=== PATIENT | female | born 1935 | race Caucasian/White ===

== ENCOUNTER 2017-02-18 13:38 | Observation (INO) | payer MEDICARE, OTHER ==
--- NOTE | 2017-02-18 13:58 | ED.PDOC ---
History of Present Illness - General Chief Complaint: General Stated Complaint: dizziness, sweating Time Seen by Provider: 02/18/17 13:51 Source: patient, family Exam Limitations: no limitations - History of Present Illness Initial Comments: PT WAS WORKING OUTSIDE IN HER YARD TODAY. WHEN SHE WENT BACK INTO THE HOUSE SHE DEVELOPED DIZZINESS AND BECAME DIAPHORETIC. CALLED FAMILY MEMBER WHO WENT TO THE HOUSE AND STATES "SHE LOOKED BAD" SO SHE TRANSPORTED HER TO THE ED FOR EVAL. Timing/Duration: other - ONSET TODAY Improving Factors: other - SPONTANEOUS, SHE FEELS BETTER CURRENTLY Worsening Factors: nothing Associated Symptoms: other - PT WAS TX'D BY HER PCP FOR A "CHEST INFX" WITH CEFNDINIR AND AZYTHROMYCIN. FINISHED THE ZITHROMAX BUT STILL TAKING THE CEFNDINIR. Allergies/Adverse Reactions: Allergies Ciprofloxacin [From Cipro] Allergy (Verified 02/18/17 13:49) Sulfamethoxazole w/Trimethoprim [From Bactrim] Allergy (Verified 02/18/17 13:49) Home Medications: Ambulatory Orders Cefdinir 300 mg PO BID 02/18/17 Review of Systems - Review of Systems Constitutional: States: diaphoresis, weakness. Denies: chills, fever EENTM: Denies: blurred vision, ear pain, throat pain, throat swelling Respiratory: Denies: cough, short of breath, wheezing Cardiology: Denies: chest pain, palpitations Gastrointestinal/Abdominal: States: diarrhea - WATERY, NO BLOOD, nausea. Denies : abdominal pain, vomiting Genitourinary: States: dysuria, hematuria Musculoskeletal: Denies: back pain, neck pain Skin: States: no symptoms reported Neurological: States: no symptoms reported Endocrine: States: no symptoms reported Past Medical History (General) - Patient Medical History Hx Hypertension: Yes Family Medical History - Family History Mother Living Status: Hx Cardiac Disease: Yes Physical Exam - Physical Exam General Appearance: Alert, Comfortable, No apparent distress Eye Exam: bilateral normal Ears, Nose, Throat: normal ENT inspection, normal pharynx Neck: full range of motion, supple, normal inspection Respiratory: lungs clear, normal breath sounds, other - O2 SAT 98% RA (NL) Cardiovascular/Chest: regular rate, rhythm, no murmur Gastrointestinal/Abdominal: non tender, soft, no organomegaly Back Exam: normal inspection, no CVA tenderness, no vertebral tenderness Extremity: normal range of motion, normal inspection Neurologic: no motor/sensory deficits, alert, normal mood/affect, oriented x 3 Skin Exam: normal color, warm/dry Lymphatic: no adenopathy Progress - Progress Progress: 02/18/17 15:11 FEELS BETTER NO FURTHER C/O'S HOWEVER, HAS A SMALL BUMP IN HER TROP AND MB. 02/18/17 15:55 D/W ATIF, HE WILL CALL DR MONTEJO AND CALL BACK - EKG/XRAY/CT EKG: Sinus - RATE 82 LAD, 1ST DEGREE AV BLOCK, NON SPECIFIC T WAVE ABNORMALITY, LBBB. NO CHANGE FROM 12/14/14 Departure - Departure Clinical Impression: Vertigo, Elevation of cardiac enzymes, Chronic hypertension Time of Disposition: 15:55 - ATIF CALL BACK WILL ADMIT HERE. Disposition: Admit Patient Condition: Good Departure Forms: ED Discharge - Pt. Copy, Patient Portal Self Enrollment Home Medications: Ambulatory Orders Cefdinir 300 mg PO BID 02/18/17
[2017-02-18] MEDS ORDERED: SODIUM CHLORIDE 0.9% 1000ML 500 ML IVS ONE (14:11)
--- NOTE | 2017-02-18 14:37 | RAD ---
EXAM DESCRIPTION: Chest,2 Views CLINICAL HISTORY: 81 years,Female,cough COMPARISON: None FINDINGS: There are no consolidations. No effusions. No pneumothoraces. No nodules. Bony elements unremarkable for age. Surgical clips right upper quadrant most likely from past cholecystectomy. IMPRESSION: Unremarkable chest for age Electronically signed by: Emiliano Mar MD 02/18/2017 2:36 PM CDT
--- NOTE | 2017-02-18 16:09 | HP ---
SUPERVISING PHYSICIAN: Chris Perla M.D. CHIEF COMPLAINT: Dizziness with some sweating. HISTORY OF PRESENT ILLNESS: Ms. Cisneros is an 81 year-old female patient who was brought to the Emergency Department by a friend. The patient notes that she had been working outside in her yard attempting to put out Easter decorations, when she walked back in the house and suddenly developed dizziness at which time she became diaphoretic and had some nausea without any emesis. She then called a family member who went to the house and noted the patient looked bad. At that point, she was transported to the Emergency Department. Symptoms had spontaneously improved by admission and she was pain free upon admission without any symptoms at the Emergency Department. She does have a significant history of being recently treated for upper respiratory infection on 02/13/17 having been treated with Azithromycin which is completed as well as Cefdinir which is still in process. Initial vital signs in the Emergency Department showed her to be afebrile with temperature 97.8, pulse 75, blood pressure 157/77, respirations 22. She was satting 90% on room air. Her initial laboratory studies for troponin showed that her troponin was slightly elevated at 0.07 as well as CK-MB was 4.6. Potassium was low at 3.1 but magnesium was normal at 2.1. EKG was completed showing that there was a heart rate of 82 with a first degree AV block with a left bundle branch block but no change compared to previous EKG on 12/14/14. Given that she had acute symptoms and now has a slight increase in her troponin, and is now pain free without any symptoms, the patient is going to be placed in Observation tonight to further rule out any acute coronary syndrome or other coronary events. The patient will be placed on telemetry with repeat serial cardiac enzymes. She was placed in Observation in stable condition. PAST MEDICAL HISTORY: 1. Gastroesophageal reflux disease. 2. Hyperlipidemia. 3. Hypertension. 4. Osteoporosis. PAST SURGICAL HISTORY: 1. Colonoscopy in 2003. 2. Esophagogastroduodenoscopy in 2004. 3. Cholecystectomy in 1971. 4. Hysterectomy in 1978. HOME MEDICATIONS: 1. Aspirin 81 mg daily. 2. Potassium 20 mEq daily. 3. Protonix 40 mg daily. 4. Folic acid 1 mg daily. 5. Diflunisal 500 mg daily. 6. Norvasc 10 mg daily. 7. Simvastatin 40 mg daily. 8. Hydrochlorothiazide 25 mg daily. 9. Continued antibiotic of Cefdinir 300 mg twice daily for a total of 10 days. ALLERGIES: CIPROFLOXACIN AND BACTRIM. FAMILY HISTORY: Father at age 57 secondary to a myocardial infarction. Mother at age 90 due to congestive heart failure and complications from previous heart surgery. SOCIAL HISTORY: The patient is retired. She previously worked at the [email or web address] in [place]. She does live in [place]. She is . She never smoked. She denies ever drinking. REVIEW OF SYSTEMS: CONSTITUTIONAL: The patient does have, as noted in the History of Present Illness, diaphoresis and weakness prior to admission but denies any chills, fevers or fatigue. HEENT: She denies any change in vision, ear pain, sore throat. RESPIRATORY: Denies any shortness of breath, coughing or wheezing, but has been recently treated for upper respiratory infection. CARDIOVASCULAR: As noted in the history of present illness, chest pains and palpitations with some dizziness, but no true syncopal episodes. Chest pain resolved prior to admission to the Emergency Department. GASTROINTESTINAL: Note that she has had some diarrhea that is watery but without any gross blood. She has had some nausea but denies any vomiting or abdominal pains. GENITOURINARY: Denies any dysuria, hematuria or other urinary symptoms. NEUROLOGIC: No syncopal episodes, changes in vision or headaches. PHYSICAL EXAMINATION: VITAL SIGNS: Temperature 97.8, pulse 75, blood pressure 157/77, respirations 22 , O2 sat 98% on room air. GENERAL: The patient on the Medical/Surgical floor appears to be in no acute distress. She is without any pains. She is alert and oriented, and visiting with family. HEENT: Tympanic membranes bilaterally are clear. Oropharynx is pink and moist without any lesions. NECK: No jugular venous distention. Neck is supple with full range of motion. CHEST: Lungs are clear to auscultation bilaterally without any rhonchi, wheezing or rales. CARDIOVASCULAR: Regular rate and rhythm without appreciable murmurs, gallops, or rubs. ABDOMEN: Soft, non-tender. Positive bowel sounds. EXTREMITIES: No clubbing, cyanosis or edema. NEUROLOGIC: She is alert and oriented times three with no motor or sensory deficits noted. LABORATORY: CBC showed a white count of 6.4, hemoglobin 13.0, hematocrit 39.8, platelet count 249,000. Differential showed a slight left shift, but she is currently being treated for an upper respiratory infection. RBC indices showed a microcytic hypochromic presentation. Coagulation studies showed a normal PT and PTT. Chemistries showed a normal sodium but low potassium at 3.1, BUN 26, creatinine 1.2, glucose 182. Magnesium 2.1. Liver functions showed to be within normal limits. Initial cardiac enzymes showed an elevated creatinine kinase at 198 with CPK of 4.6, troponin was slightly elevated at 0.07. BNP was elevated at 187. Urinalysis is pending. Initial EKG in the Emergency Department showed a first degree AV block with a left bundle branch block with no significant change as compared to old EKG on . RADIOLOGY: Chest x-ray per radiology interpretation prior to admission in the Emergency Department showed unremarkable chest for age. There was no consolidation, no effusions, no pneumothoraces. ASSESSMENT: 1. Acute near syncopal episode with some vertigo and some nausea with elevation of cardiac enzymes. 2. Elevated cardiac enzymes with the patient having no significant chest pain , unknown etiology at this point. Need further evaluation for rule out of acute cardiac event. 3. History of recent upper respiratory infection having been treated with multiple antibiotics to include Azithromycin and Omnicef under current treatment. 4. Diarrhea possibly secondary to recent antibiotic therapy possibly contributing to her vertigo and symptomology as noted in number 1. 5. Mild dehydration secondary to some diarrhea possibly contributing to some vertigo and symptoms. 6. History of esophageal reflux disease. 7. History of osteoporosis. PLAN: The patient will be placed in Observation tonight to do further cardiac studies to include serial cardiac enzymes to help rule out any other underlying coronary event. On admission, the patient was without any chest pains, but again her troponin was elevated, therefore will continue to monitor the patient on telemetry. Will monitor her labs closely. She will be started on DVT prophylaxis as per protocol. Will resume her home medications once they have been updated and verified in the electronic medical records. Should she show any elevation in troponin significant again and comparison to EKGs, certainly we will contact Cardiology tonight or in the morning. If the patient does have return of symptoms such as chest pains, at that point will need to call Cardiology. If the patient is without significant change, anticipate the patient can be discharged tomorrow with length of stay possibly 1 to 2 days. Once the patient is discharged, she will need close clinical followup with her primary care provider, Dr. Garces, as well as a followup with Cardiology with a possible stress test. She does have a stress test scheduled in July of this year. Until discharge, will continue to monitor the patient closely and treat appropriately. #[id number] MTDD
[2017-02-18] MEDS ORDERED: ASPIRIN (CHEWABLE) 81 MG TAB PO ONE (16:26)
[2017-02-18] MEDS ORDERED: SODIUM CHLORIDE 0.9% (FLUSH) 10 ML SYG IV PRN (16:26)
[2017-02-18] MEDS ORDERED: NITROGLYCERIN 0.4 MG 25 EA TAB SL PRN (16:26)
[2017-02-18] MEDS ORDERED: MORPHINE SULFATE INJ 10 MG/ML VIAL IV PRN (16:26)
[2017-02-18] MEDS ORDERED: ACETAMINOPHEN 325 MG TAB PO PRN (16:26)
[2017-02-18] MEDS ORDERED: IV SET AND CAP CHANGE INJ INJ SCH (16:30)
[2017-02-18] MEDS ORDERED: KCL 20 MEQ/NS 1,000 ML IVS PRN (17:25)
--- NOTE | 2017-02-18 17:29 | PCM.CORE ---
Physician DVT/VTE - Nurse DVT Assessment & Total Each Risk Factor Represents 3 Points: Age over 75 years, Medical PT with Hx of [place], CHF, Severe infection/sepsis Each Risk Factor is 1 Point: Obesity (BMI >25) DVT Assessment Score: 7 - 5 or more Very High Risk Treatments: Early Ambulation *, Sequential Compression Device Pharmacological: Enoxaparin 40mg SQ Daily
[2017-02-18] MEDS ORDERED: ENOXAPARIN SODIUM 40 MG/0.4 ML SYG SUBCU SCH (17:30)
[2017-02-18] MEDS: CEFDINIR 300 MG PO SCH ×2 (18:51→20:41)
[2017-02-18] MEDS: SODIUM CHLORIDE 0.9% (FLUSH) 10 ML SYG IV SCH (20:41)
[2017-02-18 21:58] VITALS: O2SAT 97
[2017-02-19] MEDS ORDERED: SIMVASTATIN 20 MG TAB ONE (07:01)
[2017-02-19] MEDS: CEFDINIR 300 MG PO SCH (08:21)
[2017-02-19] MEDS: SODIUM CHLORIDE 0.9% (FLUSH) 10 ML SYG IV SCH (08:23)
[2017-02-19] MEDS ORDERED: hydroCHLOROthiazide 25 MG TAB PO SCH (09:00)
[2017-02-19] MEDS ORDERED: FOLIC ACID 1 MG TAB PO SCH (09:00)
[2017-02-19] MEDS ORDERED: PANTOPRAZOLE SODIUM TAB 40 MG PO SCH (09:00)
[2017-02-19] MEDS ORDERED: POTASSIUM CHLORIDE 20 MEQ TAB PO SCH (09:00)
[2017-02-19] MEDS ORDERED: amLODIPine BESYLATE 5 MG TAB PO SCH (09:00)
[2017-02-19] MEDS ORDERED: ASPIRIN TABLET 325 MG TAB PO SCH (09:00)
[2017-02-19] MEDS ORDERED: SIMVASTATIN 20 MG TAB PO SCH ×2 (09:00→21:00)
[2017-02-19] MEDS ORDERED: ASPIRIN EC 81 MG TAB PO SCH (09:00)
[2017-02-19] MEDS ORDERED: DIFLUNISAL 500 MG PO SCH (09:00)
[2017-02-19] MEDS ORDERED: NON-FORMULARY MEDICATION 1 EA MIS (Simvastatin [Simvastatin] 40 MG) PO SCH (09:00)
[2017-02-19 10:28] VITALS: BP 134/80; TEMP 97.3
[2017-02-19] MEDS ORDERED: POTASSIUM CHLORIDE 20 MEQ TAB PO ONE (12:27)
[2017-02-19] MEDS ORDERED: ENOXAPARIN SODIUM 40 MG/0.4 ML SYG SUBCU SCH (21:00)
--- NOTE | 2017-02-19 21:42 | DS ---
SUPERVISING PHYSICIAN: Esvin Victor M.D. DISCHARGE DIAGNOSIS: 1. Acute near syncopal episode with some vertigo and nausea, and an elevation of her cardiac enzymes. 2. Elevated cardiac enzymes with serial troponins at 0.07 with no significant chest pain and unknown etiology at this point. Her safe deposit clerk is Dr. Christiano Gutiérrez in [place]. 3. History of recent upper respiratory infection having been treated with multiple antibiotics, including Azithromycin and currently on Omnicef as her current treatment. 4. Diarrhea possibly secondary to recent multiple antibiotic therapies that may have contributed to vertigo and symptomology as noted in number 1. 5. Mild dehydration secondary to nausea and vomiting and diarrhea that is now resolved. 6. History of gastroesophageal reflux disease. 7. History of osteoporosis. HISTORY OF PRESENT ILLNESS: This is an 81 year-old female who was brought to the Emergency Room on the date of admission with complaints of dizziness and some sweating. She had been working outside in her yard. She went back inside and suddenly developed some dizziness. She also became very diaphoretic and had some nausea with no emesis at that point. She was brought to the Emergency Room and she was pain free at that point. She had recently been treated in her primary care physician's office, Dr. Garces, for an upper respiratory infection. She initially got Azithromycin and was changed to Cefdinir that was her current treatment. Her initial vital signs in the Emergency Room showed a temperature of 97.8, pulse 75, blood pressure 157/77, respiratory rate 22. She was 90% on room air. Initial troponin was 0.07 as well as a CK-MB of 4.6. Potassium was slightly low at 3.1 and her magnesium was normal at 2.1. EKG was completed with a heart rate of 82 and showed a first degree AV block. There were no changes compared to her previous EKG on 12/14/14. She was placed in Observation in the hospital and monitored closely. HOSPITAL COURSE: The patient had no complaints of chest pain during her entire stay. Her serial EKGs were unchanged and her 3 troponins were 0.07. Potassium was slightly low again this morning and she received some oral potassium. She has had no complaints of dizziness, nausea, vomiting or diarrhea since she was put in the hospital. I spoke with Dr. Gutiérrez about her case to see if she needed to see him at any point. After discussing her symptoms as well as her labs and her testing, he felt strongly that there was no cardiac involvement given her testing and results. He felt she may have a chronic, slightly elevated troponin and recommended that her troponin be checked on an outpatient basis when she has her followup with Dr. Garces. He also said that if she had any further complaints that she could contact his office and she is scheduled for a stress test in July. DISCHARGE PLAN: The patient will be discharged home in stable condition. She is to resume her previous activities as well as continue and complete her Cefdinir antibiotics. She has a followup with Dr. Garces on 02/26/17 at 10:15 because she had a slightly low potassium and Dr. Gutiérrez would like to check her troponin as an outpatient. It is recommended that she get 1 set of cardiac enzymes as well as a metabolic panel at her followup appointment. She will be discharged home with her home medications. She is to followup with Dr. Garces's office or return to the hospital if she has any further problems or complications. DISCHARGE MEDICATIONS: 1. Cefdinir. 2. Potassium chloride. 3. Protonix. 4. Folic acid. 5. Diflunisal. 6. Amlodipine. 7. Simvastatin. 8. Hydrochlorothiazide. 9. Aspirin. Dr. Victor is the collaborating physician and available for consultation. #[id number] [facility]
[2017-02-20] MEDS ORDERED: PANTOPRAZOLE SODIUM TAB 40 MG PO SCH (06:30)
[2017-02-20] MEDS ORDERED: POTASSIUM CHLORIDE 20 MEQ TAB PO SCH (07:30)
== END 2017-02-19 13:50 | disposition home or self-care (01) ==
LOC: ER 13:38 → MS 16:08
PROVIDERS: ADMIT Nurse Practitioner Family; ATTEND Nurse Practitioner Acute Care
DX: R55 Syncope and collapse (principal); R42 Dizziness and giddiness; R11.2 Nausea with vomiting, unspecified; J06.9 Acute upper respiratory infection, unspecified; R19.7 Diarrhea, unspecified; E86.0 Dehydration; E87.6 Hypokalemia; I10 Essential (primary) hypertension; K21.9 Gastro-esophageal reflux disease without esophagitis; M81.0 Age-related osteoporosis without current pathological fracture; I44.0 Atrioventricular block, first degree; I44.7 Left bundle-branch block, unspecified; E78.5 Hyperlipidemia, unspecified; Z79.82 Long term (current) use of aspirin; Z79.899 Other long term (current) drug therapy; Z88.1 Allergy status to other antibiotic agents; Z88.3 Allergy status to other anti-infective agents; Z90.49 Acquired absence of other specified parts of digestive tract; Z82.49 Family history of ischemic heart disease and other diseases of the circulatory system
CPT/HCPCS: 36415 ×4; 71020; 80048 ×2; 80061; 80076; 82550 ×3; 82553 ×3; 83880; 84484 ×3; 85025 ×2; 85610; 85730; 93005 ×3; 94760 ×2; 96372; 99284; G0378; J1650; J7030

== ENCOUNTER → 2017-02-26 | Outpatient (CLI) | payer MEDICARE, OTHER | LOC: GMAB 14:24 | PROVIDERS: ATTEND Family Medicine | DX: R74.8 Abnormal levels of other serum enzymes (principal); R55 Syncope and collapse ==

== ENCOUNTER → 2017-10-21 | Outpatient (CLI) | payer MEDICARE, OTHER | END | disposition home or self-care (01) | LOC: GMAB 10:38 | PROVIDERS: ATTEND Family Medicine | DX: I10 Essential (primary) hypertension (principal) ==

== ENCOUNTER → 2018-01-23 | Outpatient (CLI) | payer MEDICARE, OTHER | LOC: GMAB 10:56 | PROVIDERS: ATTEND Family Medicine | DX: M06.9 Rheumatoid arthritis, unspecified (principal) ==

== ENCOUNTER → 2018-09-08 | Outpatient (CLI) | payer MEDICARE, OTHER | LOC: GMAE 14:38 | PROVIDERS: ATTEND Family Medicine | DX: M06.9 Rheumatoid arthritis, unspecified (principal) ==

== ENCOUNTER → 2018-10-01 | Outpatient (CLI) | payer MEDICARE, OTHER ==
--- NOTE | 2018-10-02 07:41 | RAD ---
EXAM: Pelvis and hip CLINICAL HISTORY: Pain COMPARISON STUDY: None TECHNICAL: AP pelvis FINDINGS: The pelvic ring is intact and negative. Both hips are in anatomic alignment. There is no identifiable fracture. There is no osseous abnormality. There are no significant degenerative changes IMPRESSION: Negative pelvis. Electronically signed by: Germán Quiroz MD 10/02/2018 7:40 AM [facility]
--- NOTE | 2018-10-02 07:41 | RAD ---
EXAM: Knee,Right Complete CLINICAL HISTORY: PAIN IN RIGHT KNEE COMPARISON STUDY: June 22, 2015 TECHNICAL: 4 views of the right knee to include standing AP FINDINGS: Joint space loss of the medial compartment has worsened since 2015. There is more subchondral sclerosis. The osteophytes along the joint line are similar. There are mild degenerative changes of the lateral compartment and moderate changes of the patellofemoral joint. There is no fracture or dislocation. IMPRESSION: Moderate to severe degenerative changes of the medial compartment. Moderate degenerative changes of the patellofemoral joint and mild changes at the lateral compartment. Electronically signed by: Germán Quiroz MD 10/02/2018 7:39 AM [facility] [email or web address]]
== END ==
LOC: RAD 09-30 19:43
PROVIDERS: ATTEND Orthopaedic Surgery
DX: M25.551 Pain in right hip (principal); M25.561 Pain in right knee; M12.861 Other specific arthropathies, not elsewhere classified, right knee

== ENCOUNTER → 2018-12-08 | Outpatient (CLI) | payer MEDICARE, OTHER | LOC: GMAE 10:24 | PROVIDERS: ATTEND Family Medicine | DX: I10 Essential (primary) hypertension (principal) ==

== ENCOUNTER → 2019-01-12 | Outpatient (CLI) | payer MEDICARE, OTHER ==
--- NOTE | 2019-01-13 12:59 | MAM ---
EXAM DESCRIPTION: 3D Screening BILATERAL : Digital Mammography. CLINICAL HISTORY: 83 years Female ANNUAL SCREENING . No complaints. No personal family history of breast cancer. Childbirth. Postmenopausal 42 years. HRT 5 or more years ago.. Lifetime risk of developing breast cancer (Tyrer-Cuzick model)(%): 1.7. COMPARISON: 2-D digital screening bilateral mammography 11/05/2016 TECHNIQUE: Bilateral CC and MLO projection full-field images, digital tomosynthesis mammographic technique. Bilateral digital 2-D full-field MLO images. CAD not available for tomosynthesis or 2-D images. FINDINGS: The breast parenchymal density pattern is: Almost entirely fatty. No skin thickening or nipple retraction. Bilateral vascular calcifications. Bilateral well-circumscribed nodular densities are stable. Scattered solitary microcalcifications bilaterally. No new focal, stellate mass or density, focal asymmetry , and no suspicious microcalcifications bilaterally. Stable mammograms compared to prior study. Taking into account, differences in mammographic technique. IMPRESSION: Benign exam. BIRAD CATEGORY: 2 BENIGN FINDINGS. RECOMMENDATIONS: FOLLOW UP: Routine digital bilateral mammographic screening, one year interval from December 2018. Written communication explaining the IMPRESSION and follow-up, will be mailed to the patient and referring health care provider. According to the [employer], yearly mammograms are recommended starting at age 40 and continuing as long as a woman is in good health. Any breast change noted on a breast self-exam should be reported promptly to the patient's healthcare provider. Breast MRI is recommended for women with an approximately 20-25% or greater lifetime risk of breast cancer, including women with a strong family history of breast or ovarian cancer and women who have been treated for Hodgkin's disease. A negative mammographic report should not delay tissue diagnosis in patients with significant clinical history or physical findings. Extremely dense breast tissue limits the sensitivity of digital mammography. Electronically signed by: Siva Stewart MD 01/13/2019 12:56 PM [employer]
== END ==
LOC: MAMMO 09:00
PROVIDERS: ATTEND Family Medicine
DX: Z12.31 Encounter for screening mammogram for malignant neoplasm of breast (principal)

== ENCOUNTER → 2019-10-18 | Outpatient (CLI) | payer MEDICARE, OTHER ==
--- NOTE | 2019-10-18 16:37 | MRI ---
Study: MRI of the Right Hip. Indication: PAIN IN RIGHT HIP Technique: Multiplanar, multi sequence MRI of the right hip was obtained without intravenous contrast. Comparison: None. Findings: No acute fracture or osteonecrosis. Mixed grade 3 and 4 chondral loss throughout the right hip joint and most pronounced superiorly and posteriorly. Tiny joint line osteophytes. Tiny joint effusion. Anterior superior right hip labral tearing noted. Tendinosis bilateral gluteus minimus/medius tendon insertions with mild bilateral protrusio bursal edema. Tendinosis bilateral hamstring tendon origins. Moderate pubic symphysis osteoarthritis. Lower lumbar disc disease. Patchy diminished T1 and elevated STIR signal throughout the pelvis and lumbar spine. Changes most pronounced at the left acetabulum where there is a somewhat asymmetric 2 cm focus of signal abnormality. Impression: Patchy abnormal marrow signal throughout the lumbar spine and pelvis. Conceivably this could reflect red marrow reconversion, however marrow infiltrating process should be highly considered and excluded. Correlation with bone scan recommended. Bone marrow biopsy may prove useful as well. Moderate right hip osteoarthritis with tiny joint effusion and labral degeneration. No acute fracture or osteonecrosis. Additional findings as above. Electronically signed by: Mike Carpenter MD 10/18/2019 4:35 PM PARTY COORDINATOR
== END ==
LOC: MRI 09:46
PROVIDERS: ATTEND Family Medicine
DX: M16.11 Unilateral primary osteoarthritis, right hip (principal)

== ENCOUNTER → 2019-10-19 | Outpatient (CLI) | payer MEDICARE, OTHER ==
--- NOTE | 2019-10-19 20:56 | MRI ---
EXAM DESCRIPTION: Lumbar Spine w/o Contrast : Magnetic Resonance Imaging. CLINICAL HISTORY: SCIATICA,RT SIDE COMPARISON: Radiograph right hip second October 2019 TECHNIQUE: Multiplanar, multiple standard sequences, non contrast MRI, lumbar spine. FINDINGS: L5-S1: The disc is well visualized on axial T2 series 501, image 3. Disc is desiccated with minimal disc space loss. Posterior midline bulge 3 mm. Grade 1 anterolisthesis 9 mm. 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 Right L5 pars is intact. Bilateral subarticular recess stenosis more on the left with compromise of the bilateral S1 nerve roots. Marked bilateral hypertrophic facet arthrosis. AP canal diameter 10 mm. Moderate right foraminal narrowing and severe left foraminal stenosis. Marked compression deformity of the central L3 vertebral body with minimal compression of the anterior and posterior endplate margins as well. Retropulsion of the superior endplate 6 mm. Posterior retropulsion almost to the same degree as the normal inferior L1 endplate. Anterior cortex of the L2 vertebral body superior endplate is 10 mm anterior to the anterior cortex of the inferior L1 endplate. Posterior body height 2 cm compared to 2.4 cm at L1. Anterior L2 body height 1.9 cm compared to 1.9 cm at L1. Central vertebral body height 0.25 cm compared to 1.8 cm at L1. L1-L2; Fluid is visualized between the L1 vertebral body and disc. Bilateral hypertrophic facet arthrosis and thickening of the ligaments. AP canal diameter 8 mm. Moderate to severe right foraminal narrowing and mild left foraminal narrowing. Conus terminates just above the disc space. L4-L5: Disc desiccation and disc space maintained. Posterior broad-based 4 mm bulge. Hypertrophic facet arthrosis and thickened ligaments bilaterally AP canal diameter 9 mm. Mild to moderate narrowing on the left and mild narrowing on the right. L3-L4: Disc desiccation with disc space maintained. Anterior bulge and endplate ridging and moderate reactive changes. Posterior broad-based bulge. Mild degenerative hypertrophy of the facet and ligament with AP canal diameter 12 mm. Bilateral mild foraminal narrowing. L2-L3: Disc desiccation with disc space maintained. Posterior small bulge. Minimal degenerative hypertrophy of the facets and ligaments. AP canal diameter 11 mm. Bilateral foramina are patent. T12-L1: Disc desiccation and minimal disc space loss more on the right with moderate endplate reactive changes. Disc spur complex encroaching on the right soft tissues and right foramen. Minimal posterior bulge. 2 mm grade 1 retrolisthesis. Left foramen patent and right foramen and mild narrowing. T11-L1 levoscoliosis. L3-S1 dextroscoliosis. Paravertebral soft tissues minimally prominent around the L1-L2 disc space. Posterior paraspinal muscle atrophy at multiple levels.. Distal cord normal signal and caliber. Otherwise normal marrow signal in the remaining vertebral bodies and the posterior elements. Vertebral bodies are not compressed at any level. IMPRESSION: 1. Marked compression type vertebral body fracture, probably subacute, central L2 vertebral body greater than 90% compression, and extensive marrow edema in the vertebral body. Marrow edema in the left pedicle. Retropulsion of the superior endplate, with the L1 vertebra and adjacent thoracic vertebra shifted posteriorly into the left on the L1 vertebra. Moderate central canal stenosis at L1-L2. Moderate to severe right foraminal narrowing. Conus terminates above the disc space with no compression. 2. Grade 1-2 anterolisthesis L5-S1 with left L5 pars spondylolysis moderate right foraminal narrowing and severe left foraminal stenosis and impingement of the exiting left L5 nerve. Also bilateral impingement of the descending bilateral S1 nerves in the lateral recesses which are stenotic. 3. L4-L5 with multifactorial mild central canal stenosis from the disc and posterior elements with mild to moderate narrowing of the left foramen. 4. Other levels with disc desiccation posterior degenerative hypertrophy of the facets and ligaments and canal narrowing. Electronically signed by: Siva Stewart MD 10/19/2019 8:54 PM [facility]
== END ==
LOC: MRI 11:00
PROVIDERS: ATTEND Family Medicine
DX: M54.31 Sciatica, right side (principal); M48.56XA Collapsed vertebra, not elsewhere classified, lumbar region, initial encounter for fracture; M51.26 Other intervertebral disc displacement, lumbar region; M43.16 Spondylolisthesis, lumbar region; M51.36 Other intervertebral disc degeneration, lumbar region; M48.062 Spinal stenosis, lumbar region with neurogenic claudication

== ENCOUNTER → 2019-10-26 | Outpatient (CLI) | payer MEDICARE, OTHER ==
--- NOTE | 2019-10-27 08:13 | NM ---
EXAM DESCRIPTION: Bone Scan, Whole Body: Nuclear Medicine CLINICAL HISTORY: 83 years Female WEDGE COMPRESSION FRACTURE OF SECOND LUMBAR VERTEBRA COMPARISON: MRI scan lumbar spine 19 October 2019. TECHNIQUE: Patient injected with 25.8 mCi of technetium 99M MDP IV. Delayed gamma camera images of whole body from various planes were obtained 3 hr after injection. SPECT imaging of the lumbar spine in 3 planes. FINDINGS: Increased activity uptake in the right side of the L3 vertebral body, the right anterior aspect of the superior endplate, right lateral superior endplate, and posterior L3 vertebral body including the superior endplate. No abnormal activity in the posterior elements at this level. This is consistent with findings on lumbar MRI Increased activity in the right vertebral body and endplate of L1 vertebra. Consistent with findings on lumbar MRI. Increased activity/uptake in the left posterior pedicle or lamina at T12. No abnormality was seen on the MRI. Increased activity in the right knee lateral femur and medial tibia. Trace activity in the bilateral shoulder joints more right than left. Increased activity in the bilateral sternoclavicular joints. Increased activity in the bilateral wrists and in the left fingers. Expected activity in the right facial region inferior to the right orbit. Prominent activity in the right renal pelvis region. Unusual activity in the urinary bladder region with possible catheter. IMPRESSION: 1. Activity/uptake in the L2 vertebral body as described consistent with compression fracture of the vertebral body. No activity in the central vertebral body, indicating no acute injury or inflammatory process. Consistent with MRI findings 2. Activity/uptake in the right L1 vertebral body and inferior endplate can be related to acute spondylosis or compression injury. Consistent with MRI findings. 3. Activity/uptake in the left T12 posterior elements could indicate stress fracture more likely than inflammatory response. No abnormality seen on the MRI scan. 4. Increased activity at uptake in the region of the right renal pelvis could indicate prominent renal pelvis as seen on MRI scan, but cannot exclude new or focal obstruction. Unusual activity in the urinary bladder region. History of urinary bladder surgery? This patient have a urinary catheter? 5. Activity in the bilateral shoulder joints, bilateral sternoclavicular joints, right knee, bilateral wrists and left fingers most likely related to degenerative disease. 6. Increased activity in the right infraorbital face. This could be secondary to recent surgery or sinus infection. Correlate with clinical history and sinus radiographs. Electronically signed by: Siva Stewart MD 10/27/2019 8:11 AM [facility]
== END ==
LOC: NM 08:36
PROVIDERS: ATTEND Family Medicine
DX: S32.020A Wedge compression fracture of second lumbar vertebra, initial encounter for closed fracture (principal)

== ENCOUNTER → 2019-11-30 | Outpatient (CLI) | payer MEDICARE, OTHER ==
--- NOTE | 2019-12-01 08:20 | CT ---
TECHNIQUE: Axial images of the lumbar spine were obtained with multiple reconstructions provided. This exam was performed according to our departmental dose-optimization program, which includes automated exposure control, adjustment of the mA and/or kV according to patient size and/or use of iterative reconstruction technique. CLINICAL HISTORY PROVIDED: LATE EFFECT OF FRACTURE OF LUMBAR VERTEBRA COMPARISON: 10/19/2019 FINDINGS: Five lumbar type vertebral bodies are present. Alignment: Degenerative stairstep retrolisthesis. No acute subluxation. Grade 1 degenerative anterolisthesis L5 on S1 measuring approximately 4 mm. Fracture: Redemonstrated L2 compression fracture. There has been progressive interval height loss and bone retropulsion. Near complete collapse centrally. Retropulsed bone extending into the central canal by approximately 7 mm resulting in severe central canal stenosis at this level. There is fracture extension into both pedicles although the lamina are not fractured. Paraspinal Soft Tissues/ Retroperitoneum: Nothing acute. L1/2: Disc space narrowing with endplate degenerative change and vacuum disc phenomenon. Severe central canal stenosis due to bone retropulsion. Bilateral facet hypertrophy. Mild bilateral neural foraminal narrowing. L2/3: Disc space narrowing with endplate degenerative change and vacuum disc phenomenon. Diffuse symmetric disc bulge osteophyte complex. Moderate central canal stenosis at disc space level. Severe bilateral neural foraminal narrowing. Bilateral facet hypertrophy. L3/4: Posterior disc space narrowing with endplate degenerative change. Diffuse symmetric disc bulge. Mild central canal stenosis. Bilateral facet hypertrophy with thickening of the ligamentum flavum. Mild bilateral neural foraminal narrowing. L4/5: Disc space narrowing with endplate degenerative change. Diffuse symmetric disc bulge. Bilateral facet hypertrophy with thickening of the ligamentum flavum. Severe central canal stenosis. Mild right and moderate left neural foraminal narrowing. L5/S1: Disc space narrowing with endplate degenerative change and vacuum disc phenomenon. Diffuse symmetric disc bulge osteophyte complex. Bilateral facet hypertrophy. No significant central canal stenosis. Severe bilateral neural foraminal narrowing. Left foraminal zone calcified disc protrusion measuring 8 mm. IMPRESSION: 1. Redemonstrated L2 compression fracture with progressive height loss and bone retropulsion resulting in severe central canal stenosis at this level. 2. Multilevel lumbar spondylosis as detailed above. Electronically signed by: Trav Boone MD 12/01/2019 8:19 AM [facility]
== END ==
LOC: CT 14:52
PROVIDERS: ATTEND Neurological Surgery
DX: S32.020S Wedge compression fracture of second lumbar vertebra, sequela (principal); M47.896 Other spondylosis, lumbar region

== ENCOUNTER → 2019-12-13 | Outpatient (CLI) | payer MEDICARE, OTHER | LOC: GMAE 10:49 | PROVIDERS: ATTEND Family Medicine | DX: I10 Essential (primary) hypertension (principal); E78.2 Mixed hyperlipidemia ==

== ENCOUNTER → 2020-04-19 | Outpatient (CLI) | payer MEDICARE, OTHER ==
--- NOTE | 2020-04-19 10:23 | CT ---
EXAM DESCRIPTION: CT Lumbar Spine without contrast CLINICAL HISTORY: 84 years, Female, LATE EFFECT OF FRACTURE OF LUMBAR VERTEBRA COMPARISON: None TECHNIQUE: Lumbar CT with thin-section axial imaging with reconstructed MPR images reviewed as well. Three-D computer generated images are evaluated. FINDINGS: 3-D images show orthopedic hardware in the lumbar spine with pedicle screws at T12, L1, L3 and L4 levels. Burst fracture at L2 is noted with splaying of fragments anterior and posterior. There is 90% loss of height at the compressed L2 vertebral body level. Sagittal reformatted images also show vacuum phenomenon within the intervertebral discs T11-12 through L1-L2 with gas in the L2 compressed vertebral body which could indicate avascular necrosis. Sagittal images show retropulsed fragments narrowing the AP diameter the spinal canal at the L2 level no periscrew osteolysis to suggest loosening or infection. The posterior margin of L1. There is relative anterior position of L3-L5 compared to the posterior margins of T12 and L1 approximately 1.3 cm. Degenerative anterolisthesis of L5 on S1 measures 0.6 cm (grade 1). No associated spondylolysis. Axial images were utilized to evaluate the disc levels as well as the level of vertebral compression. T10-T11: No posterior annular bulge, spinal stenosis or neural foraminal narrowing. Normal facets. T11-T12: Vacuum disc phenomenon is noted anteriorly. Minimal posterior annular bulge without spinal stenosis. Mild left neural foraminal narrowing with moderate facet degenerative changes. Right T12 pedicle screw extends into the right side of T12 vertebral body. Through the right pedicle, lucency around the screw may be osteolysis of loosening. Oblique orientation of the left pedicle screw is seen extending through the upper left side of the vertebral body into the disc space. Lucency around the left-sided screw is consistent with periscrew osteolysis from loosening more likely than infection. T12-L1: Mild diffuse posterior annular bulge. No spinal stenosis or left-sided neural foraminal narrowing. Moderate narrowing of the right neural foramen. The left L1 pedicle screw extends to the upper endplate of the vertebral body without surrounding osteolysis. The right pedicle screw extends into the vertebral body with rarefaction around the proximal aspect through the pedicle suggesting mild loosening. L1-L2: Moderate diffuse posterior annular bulge narrows the AP diameter the spinal canal to 1.2 cm. Severe narrowing of subarticular recesses and lateral recesses bilaterally impinging upon the descending L2 nerve roots. Retropulsed fragments of burst L2 extending into the spinal canal narrowing the AP diameter to 5 mm consistent with high-grade stenosis. There is mild left and moderately severe right neural foraminal narrowing. L2-L3: Moderate diffuse posterior annular bulge without spinal stenosis at the disc level. Sagittal images show severe left and moderate right neural foraminal narrowing. L3 pedicle screws appear optimally situated with no periscrew osteolysis. L3-L4: Moderate diffuse posterior annular bulge without high-grade spinal stenosis. There is mild bilateral neural foraminal narrowing. L4 pedicle screws appear optimally situated without periscrew osteolysis. L4-L5: Moderately severe diffuse posterior annular bulge narrows the spinal canal to 8 mm in AP dimension. Facet hypertrophy and ligamentum flavum thickening narrows the mediolateral width of the canal to 6 mm. This is consistent with moderately severe spinal stenosis. There is mild right and moderate left neural foraminal narrowing. Moderate facet hypertrophic spurring. Moderately severe left and moderate right subarticular recess narrowing impinging upon the descending L5 nerve roots. Degenerative apposition of the spinous processes posteriorly L2-3 through L5-S1 levels. L5-S1: Grade 1 spondylolisthesis causes uncovering of the posterior annulus. Moderate diffuse posterior annular bulge without significant spinal stenosis. There is severe bilateral neural foraminal narrowing compressing the exiting L5 nerve roots. Marked facet hypertrophic spurring contributes to bilateral subarticular recess and lateral recess compromise. No L5 spondylolysis. Upper sacrum appears intact. Degenerative narrowing of the SI joints. No retroperitoneal mass, adenopathy or aneurysm. IMPRESSION: Orthopedic hardware in the lower thoracic and lumbar spine surrounding burst fracture at L2 with retropulsed fragments and high-grade spinal stenosis. Multifactorial moderately severe L4-5 spinal stenosis. Grade 1 anterolisthesis of L5 on S1 with severe bilateral neural foraminal narrowing. Left-sided T12 pedicle screw extends into the T11-T12 disc space. See above. Periscrew osteolysis suggesting loosening at T12 and L1 levels. This exam was performed according to our departmental dose-optimization program, which includes automated exposure control, adjustment of the mA and/or kV according to patient size and/or use of iterative reconstruction technique. Electronically signed by: Alessandro Choudhury MD 04/19/2020 10:22 AM CDT
== END ==
LOC: CT 09:00
PROVIDERS: ATTEND Neurological Surgery
DX: S32.009S Unspecified fracture of unspecified lumbar vertebra, sequela (principal); Z98.890 Other specified postprocedural states; M48.061 Spinal stenosis, lumbar region without neurogenic claudication; M43.17 Spondylolisthesis, lumbosacral region; T84.498A Other mechanical complication of other internal orthopedic devices, implants and grafts, initial encounter

== ENCOUNTER → 2020-07-21 | Outpatient (CLI) | payer MEDICARE, OTHER ==
--- NOTE | 2020-07-25 08:25 | RAD ---
EXAM DESCRIPTION: Lumbar Spine 5 Views CLINICAL HISTORY: 84 years Female, LATE EFFECT OF FX OF LUMBAR VERTEBRA COMPARISON: April 19, 2020 Findings: Five view(s)/radiograph(s) T12-L4 posterior construct. Loosening of the bilateral T12 and right L1 pedicle screws. The left T12 pedicle screw extends into the T11-T12 disc space. No hardware fracture identified. Loosening of the bilateral L4 pedicle screws. L2 vertebral plana. Interval T11 superior endplate compression fracture with approximately 25% height loss. Osteopenia. Atherosclerotic disease. 8 mm retrolisthesis L2 on L3 which increases to 1 cm with extension. No other evidence of instability. IMPRESSION: 1. Postoperative lumbar spine with hardware complications as above. 2. Evidence of instability at L2/L3. 3. Interval T11 superior endplate compression fracture with approximately 25% height loss. Electronically signed by: Trav Boone MD 07/25/2020 8:23 AM CDT
== END ==
LOC: RAD 14:01
PROVIDERS: ATTEND Neurological Surgery
DX: S32.009S Unspecified fracture of unspecified lumbar vertebra, sequela (principal); T84.296A Other mechanical complication of internal fixation device of vertebrae, initial encounter; M48.54XA Collapsed vertebra, not elsewhere classified, thoracic region, initial encounter for fracture; Z98.890 Other specified postprocedural states

== ENCOUNTER → 2020-08-07 | Outpatient (CLI) | payer MEDICARE, OTHER ==
--- NOTE | 2020-08-07 12:07 | CT ---
EXAM DESCRIPTION: Thoracic Spine CLINICAL HISTORY: 84 years Female, UNSPECIFIED FRACTURE COMPARISON: Lumbar spine series July 21, 2020, CT examination April 19, 2020 TECHNIQUE: This exam was performed according to our departmental dose-optimization program, which includes automated exposure control, adjustment of the mA and/or kV according to patient size and/or use of iterative reconstruction technique. Noncontrast CT of the thoracic spine with MPR reformatted images FINDINGS: [employer] imaging demonstrates previous pedicle screw and elton fixation from the T12 level to the L4 level. Thin section imaging with sagittal reformats and is demonstrate prior pedicle screw fixation superiorly at T12 and L1 and inferiorly at L3 and L4. Marked vertebral collapse and vertebra plana at the L2 level with retropulsed bone and significant AP diameter central canal stenosis at the L2 level noted. The left T12 pedicle screw extends superiorly in an anterior fashion and projects into the T11/12 disc space. Lucency surrounds the left pedicle screw consistent with loosening of this pedicle screw. On the right side the pedicle screw extends into the upper T12 vertebral body. Impaction of the superior endplate at T11 with vacuum phenomenon and disc degeneration at the T10-11 level is present with very little retropulsed bone and estimated 25% loss of vertebral height. Age of compression deformity is indeterminate but new from previous April 19, 2020 CT lumbar spine. Spinal canal centrally appears adequate. At the L5-S1 level grade 1 degenerative anterolisthesis of L5 on S1 is present with marked facet hypertrophy and foraminal distortion but no severe AP diameter canal stenosis. Disc space calcification at the L4-5 level and L3-4 level incidentally noted. Above the T11 vertebral body multilevel disc space degenerative changes are present with preserved vertebral height and no bony destructive changes. The spinal canal is adequate throughout. IMPRESSION: 1. Since prior April 19, 2020 examination mild superior endplate T11 impaction fracture with approximate 25% loss of height with anatomic alignment and very little compromise of the anterior spinal canal. Subacute T11 compression deformity suspected with vacuum phenomenon and disc degenerative changes at T10-11 level. 2. Previous bilateral pedicle screws and vertical links from T12 through L4 with superior angulation and little apparent loosening of the left T12 pedicle screw, unchanged from prior study. 3. Vertebra plana at the L2 level with significant central canal stenosis. 4. Grade 1 degenerative anterolisthesis at L5-S1. Electronically signed by: Esvin Espino MD 08/07/2020 12:05 PM CDT
== END ==
LOC: CT 10:00
PROVIDERS: ATTEND Neurological Surgery
DX: S22.009A Unspecified fracture of unspecified thoracic vertebra, initial encounter for closed fracture (principal); M51.34 Other intervertebral disc degeneration, thoracic region; M51.84 Other intervertebral disc disorders, thoracic region; M48.061 Spinal stenosis, lumbar region without neurogenic claudication; M43.17 Spondylolisthesis, lumbosacral region

== ENCOUNTER → 2020-08-14 | Outpatient (CLI) | payer MEDICARE, OTHER ==
--- NOTE | 2020-08-15 14:20 | MRI ---
EXAM DESCRIPTION: Thoracic Spine w/o Contrast: Magnetic Resonance Imaging. CLINICAL HISTORY: UNSPEC FRACTURE OF UNSPECIFIED THORACIC VERTEBRA COMPARISON: CT scan of the thoracic spine August [address] scan of the lumbar spine on April 19. TECHNIQUE: Multiplanar, multiple standard sequences, non contrast MRI, thoracic spine. FINDINGS: Diffuse hyperintense STIR signal throughout the T11 vertebral body indicating marrow edema and recent injury. This extends into the bilateral pedicles more right than left. These regions are hypointense on T1 sequence. Apparent fracture line through the base of the left pedicle. Concavity in the anterior central aspect of the vertebral body which is showing the most significant compression and loss of height. Retropulsion of the superior T11 endplate 3.4 mm, abutting the ventral cord. Canal narrowing. Bilateral mild foraminal narrowing T11-T12 and T10-T11. No paravertebral soft tissue mass or fluid collection abutting the lamina or posterior process of T11. Narrowing of disc spaces at T6-T7 T5-T6 and T7-T8. Minimal desiccation of the disks with tiny posterior bulges. Canal and foramina are patent at these levels. Focal hyperintense T2 and STIR signal in the mid T3, mid T6, and T9 vertebral bodies consistent with hemangiomas. Remaining discs with normal signal. Disc spaces are preserved. Canal and foramina are patent. Facet joints are unremarkable. Posterior bilateral transpedicular fusion T12 and L1. Severe compression and retrolisthesis of the L2 vertebral body. Conus terminates at L1. Cord with normal signal, no compression. Lower thoracic dextroscoliosis Paravertebral soft tissues are unremarkable. Normal marrow signal in the remaining vertebral bodies and the posterior elements. IMPRESSION: 1. Acute versus subacute compression fracture of the T11 vertebral body more centrally and anterior and posterior. Marrow edema in the bilateral pedicles, but not the lamina or the posterior process. Fracture line in the base of the left pedicle. Retropulsion of the superior endplate abutting the ventral cord but no compression or canal stenosis. No foraminal stenosis. 2. No other compression fractures in the thoracic spine. Several disc are desiccated with disc space loss but no canal or foraminal stenosis. 3. Old severe compression fracture L2 with retropulsion and significant canal narrowing. Posterior bilateral transpedicular fusion T12-L1.. Electronically signed by: Siva Stewart MD 08/15/2020 2:18 PM CDT
== END ==
LOC: MRI 13:00
PROVIDERS: ATTEND Neurological Surgery
DX: S32.020S Wedge compression fracture of second lumbar vertebra, sequela (principal); M48.56XS Collapsed vertebra, not elsewhere classified, lumbar region, sequela of fracture; M51.24 Other intervertebral disc displacement, thoracic region; M51.34 Other intervertebral disc degeneration, thoracic region; Z98.1 Arthrodesis status

== ENCOUNTER → 2020-09-07 | Outpatient (CLI) | payer MEDICARE, OTHER ==
--- NOTE | 2020-09-08 08:34 | RAD ---
EXAM DESCRIPTION: Thoracic Spine,AP Lateral CLINICAL HISTORY: 84 years Female, UNSP FX OF UNSP THORACIC VERTEBRA COMPARISON: August 14, 2020 Findings: Two view(s)/radiograph(s) Redemonstrated T12-L4 posterior construct with previously described hardware loosening. S-shaped scoliosis. Osteopenia. Soft tissues are unremarkable. Similar T11 anterior wedge compression fracture, with similar height loss. No new fracture identified. L2 vertebral plana. IMPRESSION: Similar T11 wedge compression fracture. Electronically signed by: Trav Boone MD 09/08/2020 8:32 AM CDT
== END ==
LOC: CT 09:01
PROVIDERS: ATTEND Neurological Surgery
DX: S22.080D Wedge compression fracture of T11-T12 vertebra, subsequent encounter for fracture with routine healing (principal)

== ENCOUNTER 2020-09-25 04:32 | Emergency (ER) | payer MEDICARE, OTHER ==
[2020-09-25] MEDS ORDERED: SODIUM CHLORIDE 0.9% (FLUSH) 10 ML SYG IV PRN (04:48)
--- NOTE | 2020-09-25 05:07 | ED.PDOC ---
History of Present Illness - General Source: patient, RN notes reviewed, Vital Signs reviewed, family - Exam Limitations: no limitations - History of Present Illness Initial Comments: Patient is an 84-year-old white female who presents acutely short of breath. This started last night. She became much more short of breath here in the last hour and could not sleep and called EMS to bring her in. Patient denies any headache, dizziness, blurry vision, chest pain, nausea, vomiting or diarrhea. Patient is short of breath. She denies any cough. Shortness of breath is worse when she is lying down, slightly improved when she sits up. Patient symptoms improved after Cardizem brought her heart rate down. She did not get much help from the Xopenex neb treatment. Timing/Duration: 4-6 hours, getting worse Severity: severe Improving Factors: other - Sitting up Worsening Factors: other - Laying down Associated Symptoms: cough, shortness of breath <Seamus De La Torre - Last Filed: 09/25/20 06:52> <Maria Del Rosario Geller - Last Filed: 09/25/20 08:42> - General Chief Complaint: Respiratory Problem Stated Complaint: SOB, irreg HR, feels hot Time Seen by Provider: 09/25/20 04:39 - History of Present Illness Allergies/Adverse Reactions: Allergies Ciprofloxacin [From Cipro] Allergy (Verified 09/25/20 05:16) Codeine Allergy (Verified 09/25/20 05:16) Sulfamethoxazole w/Trimethoprim [From Bactrim] Allergy (Verified 09/25/20 05:16) Home Medications: Ambulatory Orders Folic Acid 1 mg PO DAILY 02/18/17 Hydrochlorothiazide 12.5 mg PO DAILY 02/18/17 Pantoprazole Tablet [Protonix] 40 mg PO DAILY 02/18/17 Potassium Chloride Microencaps [Klor-Con M20] 20 meq PO DAILY 02/18/17 Simvastatin 20 mg PO DAILY 02/18/17 amLODIPine BESYLATE [Norvasc] 5 mg PO DAILY 02/18/17 Leflunomide 10 mg PO DAILY 09/25/20 Methocarbamol 500 mg PO PRN 09/25/20 Tramadol HCl 50 mg PO TID PRN 09/25/20 Review of Systems - Review of Systems Constitutional: States: no symptoms reported. Denies: chills, fever, malaise, weakness EENTM: States: no symptoms reported. Denies: eye pain, blurred vision, double vision Respiratory: States: see HPI, cough, orthopnea, short of breath Cardiology: States: no symptoms reported. Denies: chest pain, palpitations, syncope Gastrointestinal/Abdominal: States: no symptoms reported. Denies: abdominal pain, diarrhea, nausea, vomiting Genitourinary: States: no symptoms reported. Denies: dysuria, frequency Musculoskeletal: States: no symptoms reported. Denies: back pain, joint pain, neck pain Skin: States: no symptoms reported. Denies: change in color, rash Neurological: States: no symptoms reported. Denies: tingling, tremors, weakness Endocrine: States: no symptoms reported. Denies: increased hunger, increased thirst, increased urine Hematologic/Lymphatic: States: no symptoms reported. Denies: blood clots, easy bleeding All other Systems: No Change from Baseline <Seamus De La Torre - Last Filed: 09/25/20 06:52> Past Medical History (General) - Patient Medical History Hx Seizures: No Hx Stroke: No Hx Dementia: No Hx Asthma: No Hx of COPD: No Hx Cardiac Disorders: No Hx Congestive Heart Failure: No Hx Pacemaker: No Hx Hypertension: Yes Hx Thyroid Disease: No Hx Diabetes: No Hx Gastroesophageal Reflux: No Hx Renal Disease: No Hx Cancer: Yes - skin cancer Hx of HIV: No Hx MRSA: No Surgical History: noncontributory - Vaccination History Hx Tetanus, Diphtheria Vaccination: No Hx Influenza Vaccination: No Hx Pneumococcal Vaccination: No - Social History Hx Tobacco Use: No Hx Alcohol Use: No Hx Substance Use: No Hx Physical Abuse: No Hx Emotional Abuse: No <Seamus De La Torre - Last Filed: 09/25/20 06:52> Family Medical History - Family History Mother Living Status: Hx Cardiac Disease: Yes <Seamus De La Torre - Last Filed: 09/25/20 06:52> Physical Exam - Physical Exam General Appearance: Alert, Anxious, Obvious distress, Ill Appearing, Restless, Well Developed, Well Groomed, Well Hydrated, Well Nourished Eye Exam: bilateral normal Ears, Nose, Throat: hearing grossly normal, normal ENT inspection, normal pharynx Neck: non-tender, full range of motion, supple Respiratory: chest non-tender, accessory muscle use, crackles - Right lower lobe, rhonchi - Diffusely throughout Cardiovascular/Chest: regular rate, rhythm, no edema, no gallop, no murmur, tachycardia Peripheral Pulses: radial,right: 2+, radial,left: 2+ Gastrointestinal/Abdominal: normal bowel sounds, non tender, soft Back Exam: normal inspection, no CVA tenderness, no vertebral tenderness Extremity: normal range of motion, non-tender, no calf tenderness Neurologic: income tax manager II-XII nml as tested, no motor/sensory deficits, alert, normal mood/affect, oriented x 3 Skin Exam: warm/dry, pallor Lymphatic: no adenopathy <Seamus De La Torre - Last Filed: 09/25/20 06:52> Progress - Progress Progress: Differential diagnosis: A. fib with rapid ventricular response, acute AL, Covid, pneumonia among others. 09/25/20 06:52 Patient's Covid is negative. Chest x-ray shows volume overload and questionable right lower lobe infiltrate. Patient does have an elevated troponin and an elevated BNP. We have no available to [facility] and therefore we will transfer patient. They have no availability at [facility] and therefore we will transfer her to [facility] in [place]. I discussed the plan of care with the patient and her family and they voiced understanding and agr eement. Seamus De La Torre M.D. #[id number] - Results/Orders Results/Orders: EKG performed on 25 September 2020 at 043 6 hours: Sinus tachycardia with fusion complexes at 106 bpm, left bundle branch block, abnormal EKG. No change when compared to an EKG on 18 February 2017 at 1509 hrs. EXAM: XR Chest, 1 View CLINICAL HISTORY: The patient is 84 years old and is Female; sob TECHNIQUE: Frontal view of the chest. COMPARISON: X-ray thoracic spine 09/07/2020 FINDINGS: Lungs: Right basilar airspace disease. Prominent interstitial markings suggestive of interstitial edema. Pleural space: Blunting of the costophrenic angles. No pneumothorax. Heart: Unremarkable. No cardiomegaly. Mediastinum: Unremarkable. Bones/joints: Unremarkable. Upper abdomen: Clips overlying the upper abdomen. IMPRESSION: 1. Right basilar airspace disease. Prominent interstitial markings suggestive of interstitial edema. 2. Bilateral pleural effusions. Electronically signed by: Jonatan Camara MD 09/25/2020 5:19 09/25/20 04:25 RESPIRATORY PANEL 2 Stat 09/25/20 04:48 Sodium Chloride 0.9% (Flush) [Saline Flush Syringe] 3 ml IV PRN PRN URINALYSIS Stat 09/25/20 04:49 IV Care:Saline Lock per Protoc QSHIFT Telemetry ONCE Oxygen Stat 09/25/20 05:00 EKG STAT 09/25/20 05:25 Isolation:Airborne ONCE CREATINE PHOSPHOKINASE Stat LD-L/LDH Stat 09/25/20 05:30 Pulse Ox, Continuous Monitoring STAT 09/25/20 09:00 Pulse Ox Daily 09/26/20 05:30 Pulse Ox, Continuous Monitoring STAT 09/27/20 05:30 Pulse Ox, Continuous Monitoring STAT Laboratory Results - last 24 hr 09/25/20 09/25/20 09/25/20 04:15 04:15 04:15 WBC 7.4 RBC 4.47 Hgb 12.8 Hct 39.1 MCV 87.6 MCH 28.7 MCHC 32.7 L RDW 13.9 Plt Count 201 MPV 10.4 Absolute Neuts (auto) 2.40 Absolute Lymphs (auto) 4.20 H Absolute Monos (auto) 0.70 Absolute Eos (auto) 0.10 Absolute Basos (auto) 0.00 Neutrophils % 32.3 L Lymphocytes % 56.6 H Monocytes % 9.1 H Eosinophils % 1.3 Basophils % 0.7 PT INR PTT (SP) D-Dimer, Quantitative Sodium 139 Potassium 4.1 Chloride 104 Carbon Dioxide 21 Anion Gap 18.1 H BUN 16 Creatinine 0.85 BUN/Creatinine Ratio 18.8 Random Glucose 194 H Serum Osmolality 284.0 Calcium 8.3 L Magnesium Total Bilirubin 0.6 Direct Bilirubin Indirect Bilirubin AST 255 H ALT 112 H Alkaline Phosphatase 178 H Creatine Kinase 159 H CK-MB (CK-2) 4.2 CK-MB (CK-2) % 2.64 Troponin I 0.23 H* B-Natriuretic Peptide Serum Total Protein 7.0 Albumin 4.2 Globulin 2.8 Albumin/Globulin Ratio 1.5 09/25/20 09/25/20 09/25/20 04:15 04:15 04:15 WBC RBC Hgb Hct MCV MCH MCHC RDW Plt Count MPV Absolute Neuts (auto) Absolute Lymphs (auto) Absolute Monos (auto) Absolute Eos (auto) Absolute Basos (auto) Neutrophils % Lymphocytes % Monocytes % Eosinophils % Basophils % PT 9.8 INR < 1.00 PTT (SP) 20.1 L D-Dimer, Quantitative 703.0 H* Sodium Potassium Chloride Carbon Dioxide Anion Gap BUN Creatinine BUN/Creatinine Ratio Random Glucose Serum Osmolality Calcium Magnesium Total Bilirubin 0.5 Direct Bilirubin 0.1 Indirect Bilirubin 0.4 AST 249 H ALT 111 H Alkaline Phosphatase 174 H Creatine Kinase CK-MB (CK-2) CK-MB (CK-2) % Troponin I B-Natriuretic Peptide 3030.0 H* Serum Total Protein 7.2 Albumin 4.2 Globulin Albumin/Globulin Ratio 09/25/20 04:15 WBC RBC Hgb Hct MCV MCH MCHC RDW Plt Count MPV Absolute Neuts (auto) Absolute Lymphs (auto) Absolute Monos (auto) Absolute Eos (auto) Absolute Basos (auto) Neutrophils % Lymphocytes % Monocytes % Eosinophils % Basophils % PT INR PTT (SP) D-Dimer, Quantitative Sodium Potassium Chloride Carbon Dioxide Anion Gap BUN Creatinine BUN/Creatinine Ratio Random Glucose Serum Osmolality Calcium Magnesium 2.4 Total Bilirubin Direct Bilirubin Indirect Bilirubin AST ALT Alkaline Phosphatase Creatine Kinase CK-MB (CK-2) CK-MB (CK-2) % Troponin I B-Natriuretic Peptide Serum Total Protein Albumin Globulin Albumin/Globulin Ratio Covid and influenza are negative. Vital Signs 09/25/20 09/25/20 09/25/20 04:32 04:36 05:00 Temperature 97.0 F L Pulse Rate [ 110 H 105 H monitor] Respiratory 30 H 28 H 30 H Rate Blood Pressure 156/107 158/129 [Right Arm] O2 Sat by Pulse 93 L 98 Oximetry 09/25/20 09/25/20 06:00 06:30 Temperature Pulse Rate [ 107 H 109 H monitor] Respiratory 26 H 26 H Rate Blood Pressure 157/108 160/89 [Right Arm] O2 Sat by Pulse 98 99 Oximetry <Seamus De La Torre - Last Filed: 09/25/20 06:52> - Results/Orders Results/Orders: The data reviewed when caring for this patient included: nurse notes, prior records, etc. The history and assessments from nurses notes were reviewed and considered, and the patient's home medication list was also reviewed and considered. My assessment and the results of testing completed here in the ED were discussed with the patient/family. All questions were answered, and they express understanding of my assessment and the plan. patient was given aspirin and lasix 40 mg IV. will add nitropaste and additional 20 mg IV lasix. patient states she had a negative stress test in July this year. 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 Patient weaned off nonrebeather, while she may benefit from bipap to help with fluid overload, she is stable on simple mask. Discussed with silo painter. Discussed with hospitalist dr Leonard. VSS, patient transferred in stable condition. Maria Del Rosario Geller DO #[id number] <Maria Del Rosario Geller - Last Filed: 09/25/20 08:42> Departure - Departure Time of Disposition: 06:57 Diet: low salt diet Activity: walking as tolerated <Seamus De La Torre - Last Filed: 09/25/20 06:52> <Maria Del Rosario Geller - Last Filed: 09/25/20 08:42> - Departure Clinical Impression: NSTEMI (non-ST elevated myocardial infarction) CHF (congestive heart failure) Qualifiers: Heart failure type: unspecified Heart failure chronicity: acute Qualified Code(s): I50.9 - Heart failure, unspecified Disposition: Transfer to Hospital Condition: Fair Departure Forms: ED Discharge - Pt. Copy, Patient Portal Self Enrollment Referrals: JUDITH GONZALEZ MD [Primary Care Provider] - 1-2 Weeks Home Medications: Ambulatory Orders Folic Acid 1 mg PO DAILY 02/18/17 Hydrochlorothiazide 12.5 mg PO DAILY 02/18/17 Pantoprazole Tablet [Protonix] 40 mg PO DAILY 02/18/17 Potassium Chloride Microencaps [Klor-Con M20] 20 meq PO DAILY 02/18/17 Simvastatin 20 mg PO DAILY 02/18/17 amLODIPine BESYLATE [Norvasc] 5 mg PO DAILY 02/18/17 Leflunomide 10 mg PO DAILY 09/25/20 Methocarbamol 500 mg PO PRN 09/25/20 Tramadol HCl 50 mg PO TID PRN 09/25/20 Critical Care Note - Critical Care Note Total Time (mins): 45 <Seamus De La Torre - Last Filed: 09/25/20 06:52> Transfer to Outside Facility - Transfer Information Decision to Transfer Date: 09/25/20 Decision to Transfer Time: 06:15 Reason for Transfer: required specialist not available [facility]ing [facility] <Seamus De La Torre - Last Filed: 09/25/20 06:52>
--- NOTE | 2020-09-25 05:20 | RAD ---
EXAM: XR Chest, 1 View CLINICAL HISTORY: The patient is 84 years old and is Female; sob TECHNIQUE: Frontal view of the chest. COMPARISON: X-ray thoracic spine 09/07/2020 FINDINGS: Lungs: Right basilar airspace disease. Prominent interstitial markings suggestive of interstitial edema. Pleural space: Blunting of the costophrenic angles. No pneumothorax. Heart: Unremarkable. No cardiomegaly. Mediastinum: Unremarkable. Bones/joints: Unremarkable. Upper abdomen: Clips overlying the upper abdomen. IMPRESSION: 1. Right basilar airspace disease. Prominent interstitial markings suggestive of interstitial edema. 2. Bilateral pleural effusions. Electronically signed by: Jonatan Camara MD 09/25/2020 5:19 AM [facility]
[2020-09-25] MEDS ORDERED: FUROSEMIDE INJ 40 MG/4 ML VIAL IV ONE (05:23)
[2020-09-25] MEDS ORDERED: ASPIRIN (CHEWABLE) 81 MG TAB PO ONE (05:50)
[2020-09-25] MEDS ORDERED: ASPIRIN (CHEWABLE) 81 MG TAB ONE (05:52)
[2020-09-25] MEDS ORDERED: NITROGLYCERIN 2% 1 GM UD TOP ONE (07:16)
[2020-09-25] MEDS ORDERED: FUROSEMIDE INJ 20 MG/2 ML VIAL IV ONE (08:02)
[2020-09-25 10:44] VITALS: BP 134/77; TEMP 96.7; O2SAT 98
== END 2020-09-25 10:24 | disposition short-term general hospital (02) ==
LOC: ER 04:32
DX: I21.4 Non-ST elevation (NSTEMI) myocardial infarction (principal); I50.9 Heart failure, unspecified; R00.0 Tachycardia, unspecified; I44.7 Left bundle-branch block, unspecified; I11.0 Hypertensive heart disease with heart failure; Z20.828 Contact with and (suspected) exposure to other viral communicable diseases; Z85.828 Personal history of other malignant neoplasm of skin; Z88.2 Allergy status to sulfonamides; Z88.1 Allergy status to other antibiotic agents; Z88.5 Allergy status to narcotic agent; Z79.899 Other long term (current) drug therapy
CPT/HCPCS: 36415; 71045; 80053; 80076; 81001; 82550; 82553; 83615; 83735; 83880; 84484; 85025; 85379; 85610; 85730; 87486; 87581; 87633; 87635; 93005; A4216; J1940

== ENCOUNTER → 2020-12-11 | Outpatient (CLI) | payer MEDICARE, OTHER | LOC: LAB.O 10:40 | PROVIDERS: ATTEND Internal Medicine Interventional Cardiology | DX: I42.0 Dilated cardiomyopathy (principal); D64.9 Anemia, unspecified; R53.83 Other fatigue ==

== ENCOUNTER → 2021-01-09 | Outpatient (CLI) | payer MEDICARE, OTHER | LOC: GMAE 11:39 | PROVIDERS: ATTEND Family Medicine | DX: I10 Essential (primary) hypertension (principal); Z79.899 Other long term (current) drug therapy; E78.2 Mixed hyperlipidemia ==